=== PATIENT | male | born 1945 | race Caucasian/White ===

== ENCOUNTER 2020-04-18 05:50 | Day surgery (SDC) | payer MEDICARE ==
[2020-04-14 11:27] LABS: BASOPHILS % (AUTO) 0.7 % (0.0-5.0); EOSINOPHILS % (AUTO) 3.9 % (0.0-8.0); LYMPHOCYTES % (AUTO) 13.5 % (21.0-51.0); MEAN CORPUSCULAR HEMOGLOBIN 32.2 pg (27.0-33.0); MEAN CORPUSCULAR HGB CONC 31.5 g/dL (32.0-36.0); MEAN CORPUSCULAR VOLUME 102.4 fL (79-99); MONOCYTES % (AUTO) 12.4 % (3.0-13.0); NEUTROPHILS % (AUTO) 69.3 % (40.0-77.0); PLATELET COUNT (AUTO) 249 K/uL (130-400); RED BLOOD CELL COUNT(AUTO) 3.32 MIL/uL (4.50-6.20); RED CELL DISTRIBUTION WIDTH 15.5 % (11.0-15.5); WHITE BLOOD COUNT (AUTO) 8.7 K/uL (4.8-10.8)
[2020-04-14 11:35] LABS: CREATININE 5.8 mg/dL (0.5-1.5); POTASSIUM 4.8 mmol/L (3.5-5.1)
[2020-04-14 12:04] LABS: INR 1.13 (0.85-1.15); PARTIAL THROMBOPLASTIN TIME 31.7 SEC (26.3-35.5); PROTHROMBIN TIME 12.1 SEC (9.6-11.6)
--- NOTE | 2020-04-17 10:18 | NUR ---
labs abnormal labs reported to DR. Martinez. message left with Jalyn. pending call back
[2020-04-17 10:34] VITALS: BP 135/73
--- NOTE | 2020-04-17 12:50 | NUR ---
labs received call back from dr. hill. to repeat potassium level am of procedure.
[2020-04-18] VITALS (8 sets, daily range): BP systolic 102–128; BP diastolic 41–57
[~2020-04-18] VITALS: Ht 180.3 cm; Wt 155.1 kg
[~2020-04-18 05:50] MED LIST: ACET-2743 PO; AMIO200T5 PO; APIX5TAB PO; INSU100C6 SQ; INSU100V37 SQ; METO25TA3 PO; MIDO5TAB4 PO; MULT-1203 PO; SIMV10TA97 PO; SODIUM CHLORIDE 0.9% 500ML 500 ML IV SCH; TAMS-1 PO; TORS20TA4 PO
--- NOTE | 2020-04-18 07:00 | NUR ---
PT HERE FOR CARDIOVERSION. I NOTED PT TO HAVE A RT LOWER LEG ULCER-OPEN TO AIR AND SUPERFICIAL NO PUS OR DRAINAGE HE ALSO HAD 1 SMALL DARK AREA TO RT GREAT TOE. THESE ARE CHRONIC WOUNDS.
[2020-04-18] MEDS ORDERED: PROPOFOL 10 MG/ML 20ML VIAL IV ONE (08:39)
--- NOTE | 2020-04-18 09:26 | NUR ---
DR KELLER AT BEDSIDE REVIEWING ECHO IN PROGRESS. PT IS AWAKE AND ALERT-PRE PROCEDURE STATUS
--- NOTE | 2020-04-18 09:29 | NUR ---
PER DR KELLER PT MAY GO HOME WHEN CRITERIA MET. PT IVAN FOLLOW UP AT [facility]
--- NOTE | 2020-04-18 10:30 | NUR ---
DISCHARGED HOME-PRINTED AND VERBAL INSTRUCTIONS GIVEN TO PATIENT AND HIS DAUGHTER IN [place]. BOTH VERBALIZE UNDERSTANDING. IV CATH WAS REMOVED INTACT. PT HAD NO SOB/CHEST PAIN. VERBALIZED NO COMPLAINTS. TO CAR VIA WHEELCHAIR.
== END 2020-04-18 10:30 | disposition home or self-care (01) ==
LOC: DAH 05:50
PROVIDERS: ATTEND Internal Medicine Cardiovascular Disease
DX: I47.1 Supraventricular tachycardia (principal); Z20.828 Contact with and (suspected) exposure to other viral communicable diseases; I37.1 Nonrheumatic pulmonary valve insufficiency; I44.1 Atrioventricular block, second degree; I48.92 Unspecified atrial flutter; E66.9 Obesity, unspecified; I25.5 Ischemic cardiomyopathy; Z79.1 Long term (current) use of non-steroidal anti-inflammatories (NSAID); Z79.890 Hormone replacement therapy; Z79.82 Long term (current) use of aspirin; Z79.01 Long term (current) use of anticoagulants; Z79.02 Long term (current) use of antithrombotics/antiplatelets; Z68.41 Body mass index [BMI] 40.0-44.9, adult
CPT/HCPCS: 36415 ×2; 80048; 82948 ×2; 84132; 85025; 85610; 85730; 92960; 93005 ×2; 93306; A4215; A4216; A4221; A4222; A4223 ×3; A4606; A4663; C9803; J2704; U0003